=== PATIENT | female | born 2000 | race Two or more races ===

== ENCOUNTER → 2024-05-19 | Outpatient (CLI) | payer BC, MEDICAID, SELFPAY ==
[2024-05-21 10:39] LABS: BVAG Candida Negative (Negative); Bacterial Vaginosis Markers Negative (Negative); Candida glabrata Negative (Negative); Candida krusei PCR Negative (Negative); Trichomonas Negative (Negative)
== END | disposition home or self-care (01) ==
LOC: SLDO 14:57
PROVIDERS: Referring Provider Physician Assistant Medical; Visit Provider Physician Assistant Medical
DX: B37.89 Other sites of candidiasis (principal); A59.01 Trichomonal vulvovaginitis; N76.0 Acute vaginitis
CPT/HCPCS: 81514

== ENCOUNTER 2024-06-01 08:18 | Emergency (ER) | payer BC, SELFPAY ==
[2024-06-01 08:19] VITALS: BMI 28.3
[2024-06-01 08:29] VITALS: BP 108/74; PULSE 90; RESP 18; TEMP 36.8; O2SAT 96
--- NOTE | 2024-06-01 08:34 | XR_ITS ---
EXAMINATION: XR foot comp RT min 3V ORDERING PROVIDER: DAVIS Villavicencio HISTORY: trauma TECHNIQUE: 3 radiographs of the right foot were obtained. COMPARISON: None. FINDINGS: BONES: No acute fracture or dislocation. ALIGNMENT: Normal. JOINTS: Normal. BONY MINERALIZATION: Normal. SOFT TISSUES: Normal. IMPRESSION: Normal.
--- NOTE | 2024-06-01 08:35 | EDNOTE_ITS ---
Lower Extremity Injury RME/HPI General Chief Complaint: Ankle/Foot Injury Stated Complaint: PAIN TO RIGHT 5TH TOE x 2 DAYS Time Seen by Provider: 06/01/24 08:28 Source: patient Arrival date/time: 06/01/24 08:18 24-year-old female with no known medical history presents to the emergency room with a chief complaint of pain tenderness and swelling to the fifth toe in the right foot x 2 days Mode of arrival: ambulatory Limitations: no limitations Related Data Previous Rx's ?Medication ?Instructions ?Recorded cephalexin 500 mg capsule (Keflex) 500 mg PO BID #14 c aps 05/18/19 Allergies Allergy/AdvReac Type Severity Reaction Status Date / Time No Known Allergies Allergy Verified 06/01/24 08:19 Review of Systems Review of Systems Systems Reviewed: All systems reviewed, normal except as documented Constitutional Constitutional: Reports system reviewed and no additional complaints, except as documented, Denies fatigue, Denies fever(s), Denies headache(s) and Denies weakness Eyes Eyes: Reports system reviewed and no additional complaints, except as documented, Denies blurry vision and Denies change in vision ENT Ears, Nose, Mouth, and Throat: Reports system reviewed and no additional complaints, except as documented, Denies otalgia, Denies headache(s), Denies nasal congestion, Denies throat swelling and Denies vertigo Cardiovascular Cardiovascular: Reports system reviewed and no additional complaints, except as documented, Denies chest pain, Denies dyspnea and Denies dyspnea on exertion Respiratory Respiratory: Reports system reviewed and no additional complaints, except as documented, Denies chest congestion, Denies cough, Denies dyspnea, Denies dyspnea on exertion and Denies wheezing Gastrointestinal Gastrointestinal: Reports system reviewed and no additional complaints, except as documented, Denies abdominal pain, Denies cramping, Denies nausea and Denies vomiting Genitourinary Genitourinary: Reports system reviewed and no additional complaints, except as documented Musculoskeletal Musculoskeletal: Reports system reviewed and no additional complaints, except as documented, Reports arthralgias, Denies back pain, Reports joint swelling and Reports limited range of motion Integumentary/Breasts Skin/Breast: Reports system reviewed and no additional complaints, except as documented and Denies wounds Neurologic Neurologic: Reports system reviewed and no additional complaints, except as documented, Denies confusion, Denies headache(s), Denies lack of coordination, Denies vertigo and Denies weakness Psychiatric Psychiatric: Reports system reviewed and no additional complaints, except as documented, Denies anxiety, Denies confusion, Denies depression, Denies paranoia, Denies suicidal ideation and Denies tactile hallucinations Endocrine Endocrine: Reports system reviewed and no additional complaints, except as documented and Denies fatigue Hematologic/Lymphatic Hematologic/Lymphatic: Reports system reviewed and no additional complaints, except as documented and Denies lymphadenopathy Allergic/Immunologic Allergic/Immunologic: Reports system reviewed and no additional complaints, except as documented, Denies throat swelling, Denies urticaria and Denies wheezing ED Exam General Limitations: Present no limitations General appearance: Present alert and in no apparent distress Head Head exam: Present atraumatic Eye Eye exam: Present normal appearance, PERRL and EOMI ENT ENT exam: Present normal exam, normal oropharynx and mucous membranes moist Neck Neck exam: Present normal inspection, full ROM and trachea midline Chest Chest inspection: Present normal inspection and symmetric chest wall rise Respiratory Respiratory exam: Present normal lung sounds bilaterally Cardiovascular Cardiovascular exam: Present regular rate, normal rhythm and normal heart sounds Abdominal Exam Abdominal exam: Present soft and normal bowel sounds Extremities Exam Extremities exam: Present normal inspection and full ROM Expanded Lower Extremity Exam Hip/Pelvis exam: Present normal inspection Upper leg exam: Present normal inspection Knee exam: Present normal inspection Lower leg exam: Present normal inspection Ankle exam: Present normal inspection Foot/toe exam: Present tenderness and swelling; Absent full ROM Back Exam Back exam: Present normal inspection and full ROM Neurological Exam Neurological exam: Present alert, oriented X3 and CN II-XII intact Psychiatric Psychiatric exam: Present normal affect and normal mood Skin Skin exam: Present warm, dry, intact and normal color Course Quality Measures none Orders Category Date Time Status XR foot comp RT min 3V Stat Exams 06/01/24 08:34 Completed Vital Signs Vital signs: Vital Signs Temperature 98.3 F 06/01/24 08:29 Pulse Rate 90 06/01/24 08:29 Respiratory Rate 18 06/01/24 08:29 Blood Pressure 108/74 06/01/24 08:29 Pulse Oximetry (%) 96 06/01/24 08:29 Oxygen Delivery Method Room Air 06/01/24 08:29 O2 saturation 96% within normal limits Extremity Injury, Lower MDM Narrative MDM Narrative:: 24-year-old female with no known medical history presents to the emergency room with a chief complaint of pain tenderness and swelling to the fifth toe in the right foot x 2 days Patient is hemodynamically stable and in no apparent distress Physical examination shows tenderness, swelling, pain to the right foot fifth digit. Patient states she was in the process of moving out of her house and stubbed her toe 2 days ago. Since then the toe has been swollen and tender to the touch. X-ray of the right foot was completed and was negative for any acute fracture. Patient was discharged and educated to follow-up with primary care provider and return to the emergency room for any evidence of worsening signs or symptoms Patient data External records reviewed:: [facility] previous records Clinical information provided by:: patient Social determinants that could affect healthcare access:: none Patient has the following chronic illnesses:: No chronic illness How is presenting disease/condition affected by chronic disease/condition?: no chronic disease Evaluation data The following diagnostics were reviewed and interpreted by me:: lab results and radiology exam(s) Lab and/or radiology exams considered but not ordered:: Labs and radiology exams considered and ordered Interpretation Summary: Right foot x-ray-no acute fracture or dislocation Medications / Prescriptions Medications or Prescriptions considered but not ordered:: Medication not given Medication administrations:: Medication not given Consultations Consultation(s) initiated? (list below): No Diagnosis Extremity Injury, Lower Differential Diagnosis: fracture of toe and other Most likely diagnosis given after review of the tests above:: Toe sprain Admission Indicated Admission indicated?: not indicated Admission Request Was there a request for admission?: No Disposition Plan Disposition Plan: Discharge Discharge Attestation Discharge Attestation: The patient and all family members were given an opportunity to ask questions and understood the discharge instructions. Discharge instructions specifically effects, indications for sooner follow up or return to the emergency department, and the expected course of current diagnosis. Patient condition: Stable Discharge Plan Plan Patient Disposition: HOME (Self Care) Disposition Comment: Stable Prescriptions/Referrals Prescriptions/Med Rec: No Action cephalexin [Keflex] 500 mg capsule 500 mg PO BID Qty: 14 0RF Referrals: Courtney Simms MD [Primary Care Provider] - In 1 week Problem List Clinical Impression: Sprain of toe, fifth, right Patient/Caregiver Discharge Instructions Education Materials: ED Toe Sprain Additional Instructions: Please follow-up with your primary care provider in the next 24 to 48 hours. X-ray of your right foot was completed and was negative for any acute fractures or dislocations For any evidence of worsening signs or symptoms return to the emergency room immediately Print Language: Lao Stand Alone Forms: Elina Award Info., Work/School Release, Patient Portal Info Letter PA/BUSINESS LINE CONTROLLER Supervising Physician PA/BUSINESS LINE CONTROLLER Supervising Physician: Dr. Self
== END 2024-06-01 09:35 | disposition home or self-care (01) ==
PROVIDERS: Emergency Provider Emergency Medicine; PCP Internal Medicine
DX: S93.504A Unspecified sprain of right lesser toe(s), initial encounter (principal); X58.XXXA Exposure to other specified factors, initial encounter
CPT/HCPCS: 73630; 99283

== ENCOUNTER 2024-08-09 12:03 | Emergency (ER) | payer BC, MEDICAID, SELFPAY ==
--- NOTE | 2024-08-09 | XR_ITS ---
Examination: PA lateral chest 2 views TECHNIQUE: Upright PA and lateral chest 2 views Exam date and time: August 09, 2024 1600 hours INDICATIONS: Shortness of breath today. FINDINGS: Pneumonia in the right upper lobe Normal heart size Left lung clear IMPRESSION: Pneumonia right upper lobe
[2024-08-09] MEDS: cefTRIAXone 1,000 MG, LIDOCAINE 1% 20 ML 2.1 ML IM (13:48)
[2024-08-09 17:01] LABS: Strep A Rapid Negative (Negative)
[2024-08-10] MEDS: ACETAMINOPHEN 325 MG TABLET 650 MG PO (15:00)
== END 2024-08-09 13:41 | disposition home or self-care (01) ==
PROVIDERS: Emergency Provider Emergency Medicine; PCP Internal Medicine
DX: J18.9 Pneumonia, unspecified organism (principal)
CPT/HCPCS: 71046; 87651; 96372; 99283; J0696; J3490; A9270

== ENCOUNTER 2024-11-20 23:19 | Emergency (ER) | payer BC, MEDICAID, SELFPAY ==
[2024-11-20 23:19] VITALS: BMI 27.4
[2024-11-20 23:45] VITALS: BP 122/86; PULSE 90; RESP 18; TEMP 36.9; O2SAT 99
--- NOTE | 2024-11-21 00:11 | EDNOTE_ITS ---
Upper Respiratory Inf. RME/HPI General Chief Complaint: Dental/Oral/Throat Stated Complaint: THROAT PAIN Time Seen by Provider: 11/20/24 23:50 Arrival date/time: 11/20/24 23:19 24F with no significant PMH presents to ED with 2 days of sore throat. No cough. Limitations: no limitations Related Data Previous Rx's ?Medication ?Instructions ?Recorded cephalexin 500 mg capsule (Keflex) 500 mg PO BID #14 c aps 05/18/19 amoxicillin 500 mg tablet 500 mg PO BID 10 days #20 ta bs 11/21/24 Allergies Allergy/AdvReac Type Severity Reaction Status Date / Time No Known Allergies Allergy Verified 06/01/24 08:19 Review of Systems Review of Systems Systems Reviewed: All systems reviewed, normal except as documented Constitutional Constitutional: Reports system reviewed and no additional complaints, except as documented, Denies fever(s) and Denies headache(s) ENT Ears, Nose, Mouth, and Throat: Reports as per HPI, Denies disequilibrium, Denies headache(s) and Reports sore throat Cardiovascular Cardiovascular: Reports system reviewed and no additional complaints, except as documented, Denies chest pain and Denies dyspnea Respiratory Respiratory: Reports system reviewed and no additional complaints, except as documented, Denies cough and Denies dyspnea Gastrointestinal Gastrointestinal: Reports system reviewed and no additional complaints, except as documented, Denies abdominal pain, Denies nausea and Denies vomiting Neurologic Neurologic: Reports system reviewed and no additional complaints, except as documented, Denies confusion, Denies disequilibrium and Denies headache(s) Psychiatric Psychiatric: Denies confusion Past Medical History Past Medical History CARDIAC: Negative Congestive Heart Failure RESPIRATORY: Negative Chronic Obstructive Pulmonary Disease (COPD) GENITOURINARY: Negative Renal Disease ENDOCRINE: Negative Diabetes Mellitus Type 1 or Diabetes Mellitus Type 2 Social History SMOKING STATUS: Current some day smoker ED Exam General Limitations: Present no limitations General appearance: Present alert and in no apparent distress Head Head exam: Present atraumatic Eye Eye exam: Present normal appearance, PERRL and EOMI ENT ENT exam: Present mucous membranes moist Expanded ENT Exam Throat exam: Present tonsillar erythema; Absent tonsillomegaly, tonsillar exudate, R peritonsillar mass, L peritonsillar mass or muffled voice Neck Neck exam: Present normal inspection, full ROM and trachea midline Chest Chest inspection: Present normal inspection and symmetric chest wall rise Respiratory Respiratory exam: Present normal lung sounds bilaterally Cardiovascular Cardiovascular exam: Present regular rate, normal rhythm and normal heart sounds Abdominal Exam Abdominal exam: Present soft and normal bowel sounds Extremities Exam Extremities exam: Present normal inspection and full ROM Back Exam Back exam: Present normal inspection and full ROM Neurological Exam Neurological exam: Present alert, oriented X3 and CN II-XII intact Psychiatric Psychiatric exam: Present normal affect and normal mood Skin Skin exam: Present warm, dry, intact and normal color Course Quality Measures none Orders Category Date Time Status Strep A Rapid Stat Lab 11/20/24 23:54 Completed Amoxicillin Cap [Amoxil Cap] Med 11/21/24 00:26 Discontinued 500 mg PO X1 ONE Vital Signs Vital signs: Vital Signs Temperature 98.4 F 11/20/24 23:45 Pulse Rate 90 11/20/24 23:45 Respiratory Rate 18 11/20/24 23:45 Blood Pressure 122/86 H 11/20/24 23:45 Pulse Oximetry (%) 99 11/20/24 23:45 Oxygen Delivery Method Room Air 11/20/24 23:45 O2 at 99% on RA and WNLs Upper Respiratory Infection MDM Narrative MDM Narrative:: 24F with no significant PMH presents to ED with 2 days of sore throat. No cough. Physical exam reveals red oropharynx, but normal WOB. Patient is afebrile, calm, and alert. Strep+. Meds and student success counselor given. Patient data External records reviewed:: [facility] previous records Clinical information provided by:: patient Social determinants that could affect healthcare access:: none Patient has the following chronic illnesses:: none How is presenting disease/condition affected by chronic disease/condition?: no chronic disease Evaluation data The following diagnostics were reviewed and interpreted by me:: lab results Lab and/or radiology exams considered but not ordered:: ordered Interpretation Summary: above Medications / Prescriptions Medications or Prescriptions considered but not ordered:: not ordered Medication administrations:: Medication Administration History Discontinued Medications Amoxicillin (Amoxicillin 250 Mg Capsule) 500 mg PO X1 ONE Stop: 11/21/24 00:27 n/a Consultations Consultation(s) initiated? (list below): No Diagnosis Upper Respiratory Differential Diagnosis: upper respiratory infection, croup, otitis media, sinusitis, viral infection, bronchitis, influenza, pharyngitis and other (strep pharyngitis) Most likely diagnosis given after review of the tests above:: strep pharyngitis Admission Indicated Admission indicated?: not indicated Admission Request Was there a request for admission?: No Disposition Plan Disposition Plan: Discharge Discharge Attestation Discharge Attestation: The patient and all family members were given an opportunity to ask questions and understood the discharge instructions. Discharge instructions specifically effects, indications for sooner follow up or return to the emergency department, and the expected course of current diagnosis. Patient condition: Stable Discharge Plan Plan Patient Disposition: HOME (Self Care) Discharge Disposition comment: Stable Prescriptions/Referrals Prescriptions/Med Rec: New amoxicillin 500 mg tablet 500 mg PO BID 10 Days Qty: 20 0RF No Action cephalexin [Keflex] 500 mg capsule 500 mg PO BID Qty: 14 0RF Problem List Clinical Impression: Acute streptococcal pharyngitis Patient/Caregiver Discharge Instructions Education Materials: ED Pharyngitis, Strep (Confirmed) Additional Instructions: Please follow-up with PCP within 24-48 hours and return immediately if symptoms worsen. Ibuprofen/Tylenol can be used simultaneously for greater fever/pain control. Print Language: Citizen [place] Stand Alone Forms: Patient Portal Info Letter FEMI/DAVIS Supervising Physician MYLES Supervising Physician: Dr. Singh
[2024-11-21 00:24] LABS: Strep A Rapid Positive (Negative)
[2024-11-21] MEDS: AMOXICILLIN 250 MG CAPSULE 500 MG PO (00:35)
[2024-11-21 01:01] VITALS: BP 111/79; PULSE 72; RESP 18; TEMP 36.5; O2SAT 98
== END 2024-11-21 00:55 | disposition home or self-care (01) ==
LOC: SERX 11-21 00:32
PROVIDERS: Physician Assistant; Emergency Provider Emergency Medicine; PCP Internal Medicine
DX: J02.0 Streptococcal pharyngitis (principal); F17.200 Nicotine dependence, unspecified, uncomplicated
CPT/HCPCS: 87651; 99282; A9270